=== PATIENT | female | born 1975 | race Two or more races ===

== ENCOUNTER 2021-09-14 04:43 | Day surgery (SDC) | payer BC, OTHER ==
[2021-09-12 17:43] VITALS: BMI 25.4
[2021-09-14] MEDS ORDERED: oxyCODONE HCL 5 MG TABLET PO PRN ×2 (07:37)
[2021-09-14] MEDS ORDERED: PROMETHAZINE HCL 25 MG/1 ML VIAL IVPUSH PRN (07:37)
[2021-09-14] MEDS ORDERED: ONDANSETRON 4 MG/2 ML VIAL IVPUSH PRN (07:37)
[2021-09-14] MEDS ORDERED: LACTATED RINGERS SOLUTION 1,000 ML IV SCH (07:45)
[2021-09-14] MEDS ORDERED: ceFAZolin SODIUM 1 GM VIAL IVPB ONE (08:08)
[2021-09-14] MEDS ORDERED: BUPIVACAINE HCL/PF 0.5% (5 MG/ML) 30 ML VIAL IJ ONE ×2 (08:21)
[2021-09-14 11:44] VITALS: BP 101/62; PULSE 70; TEMP 98
== END 2021-09-14 11:45 | disposition home or self-care (01) ==
LOC: JASU-SURG 04:43
PROVIDERS: ATTEND Obstetrics & Gynecology
PROC: 0UT74ZZ Resection of Bilateral Fallopian Tubes, Percutaneous Endoscopic Approach (ICD-10-PCS; principal; 2021-09-14 07:30)
DX: Z30.2 Encounter for sterilization (principal); N83.8 Other noninflammatory disorders of ovary, fallopian tube and broad ligament; K66.0 Peritoneal adhesions (postprocedural) (postinfection)
CPT/HCPCS: 36415; 81025; 84703; 86922; 88302-TC; 94760